=== PATIENT | male | born 1965 ===

== ENCOUNTER 2020-04-24 18:26 | Inpatient (IN) | payer BC, SELFPAY ==
[2020-04-24] MEDS ORDERED: SUMAtriptan Succinate 50 MG TAB PO PRN (23:15)
[2020-04-24] MEDS ORDERED: Linaclotide [Linzess] 72 MCG Capsule PO PRN (23:18)
[2020-04-24] MEDS: Albuterol 200 PUFF (6.7GM INHALER) INH PRN (23:53)
--- NOTE | 2020-04-25 00:06 | PDOC.BPN ---
- Brief Progress Note [id number] HP dictated
[2020-04-25 00:13] VITALS: BMI 23.6
--- NOTE | 2020-04-25 01:30 | HP ---
CHIEF COMPLAINT: Shortness of breath and fever. HISTORY OF PRESENT ILLNESS: Mr. Florentino is a 55-year-old male, who is being transferred from outside emergency room after he presented there with cough, fever, shortness of breath that has been going on for the last week or so. The patient does have a history of chronic kidney disease, esophageal varices, portal vein thrombosis, hypertension. In the emergency room, the patient was tested positive for COVID-19. Chest x-ray showed increased pulmonary markings/infiltrates. The patient was found to be hypoxic with oxygen saturation in the 80s. Placed on 3 L/minute nasal cannula. The patient was given IV dexamethasone, bronchodilators, and requested to transfer the patient on medical facility for further management. PAST MEDICAL HISTORY: As mentioned above in history of present illness. PAST SURGICAL HISTORY: 1. Endoscopy. 2. Colonoscopy. SOCIAL HISTORY: Denies drug use or alcohol abuse. FAMILY HISTORY: Reviewed and noncontributory. HOME MEDICATIONS: See home medication reconciliation form for updated medications. ALLERGIES: ALLERGIC TO HYDROCODONE, MEPERIDINE, MORPHINE, TETRACYCLINE. REVIEW OF SYSTEMS: Review of 14 systems negative except what is mentioned in history of present illness. PHYSICAL EXAMINATION: GENERAL: The patient is awake, alert, in moderate distress. VITAL SIGNS: Temperature is 97.4, blood pressure 120/72, pulse is 84, respiratory rate is 24, oxygen saturation is 95% on 3 L/minute nasal cannula. HEAD AND NECK: Normocephalic, atraumatic. Neck is supple. CHEST: Coarse bilateral breath sounds, respirations are not labored. HEART: S1 and S2, regular. ABDOMEN: Soft, nontender. Bowel sounds present. NEUROLOGIC: Awake, alert. No focal deficits. PSYCH: Unable to assess. EXTREMITIES: No clubbing, no cyanosis. GENITOURINARY: No suprapubic tenderness. No flank tenderness. LABORATORY DATA: WBC 11.7, hemoglobin 14.9, platelets 226. Sodium 138, potassium 4.0, BUN is 24, glucose 112. ABG, pH 7.48, PaCO2 is 24, PaO2 is 68 on 3 L/minute nasal cannula. ASSESSMENT AND PLAN: 1. Acute hypoxic respiratory failure. 2. Coronavirus disease-19 pneumonia. 3. Chronic kidney disease. 4. History of portal vein thrombosis. The patient was on Eliquis, but it was stopped because of gastrointestinal bleeding. 5. Esophageal varices, history of bleeding. His Eliquis has been stopped. 6. Hypertension. PLAN: 1. Admit. 2. Oxygen to keep saturation more than 92%. 3. IV dexamethasone. 4. Empiric IV antibiotic. 5. Cannot anticoagulate, the patient has a history of GI bleed/esophageal varices. 6. Remdesivir to be considered, but the patient has chronic kidney disease and elevated creatinine, reassess in a.m. May need to consult Pulmonary for evaluation and further recommendations. 7. Reconcile home medications. 8. DVT prophylaxis as appropriate. 9. Expected length of stay, 2 midnights or more. Job ID: [id number]
[2020-04-25] MEDS: Ondansetron ODT 4 MG TAB PO PRN ×3 (02:27→21:01)
[2020-04-25] MEDS: Acetaminophen 325 MG TAB PO PRN ×3 (02:27→21:00)
[2020-04-25] MEDS: Guaifenesin DM 100-10/5 ML UDCUP PO PRN ×3 (03:36→21:01)
[2020-04-25] MEDS: Levothyroxine Sodium 75 MCG TAB PO SCH (05:33)
[2020-04-25 06:12] LABS: #Lymphocytes 0.7 thou/uL (1.20-3.40); #Monocytes 0.7 thou/uL (0.11-0.59); %Eosinophils 0.2 % (0.0-10.0); %Lymphocytes 7.6 % (21.0-51.0); %Monocytes 7.2 % (0.0-10.0); Hemoglobin 13.1 g/dL (14.0-18.0); Mean Corpuscular HGB CONC 32.4 g/dL (32.0-36.0); Mean Corpuscular Hemoglobin 29.1 pg (27.0-31.0); Mean Platelet Volume 7.7 fL (7.4-10.4); Platelet Count 172 thou/uL (130-400); Red Blood Cell (RBC) Count 4.49 mill/uL (4.70-6.10); White Blood Cell (WBC) Count 9.4 thou/uL (4.8-10.8)
[2020-04-25 06:34] LABS: ALT (SGPT) 53 U/L (8-55); AST (SGOT) 48 U/L (5-34); Albumin 3.3 g/dL (3.5-5.0); Alkaline Phosphatase 59 U/L (40-110); Anion Gap 15 mmol/L (10-20); BUN (Urea Nitrogen) 22 mg/dL (8.4-25.7); Bilirubin, Total 0.9 mg/dL (0.2-1.2); Calc. Creatinine Clearance 83 mL/min (70-130); Calcium 7.9 mg/dL (7.8-10.44); Carbon Dioxide 21 mmol/L (22-29); Chloride 107 mmol/L (98-107); Globulin 2.9 g/dL (2.4-3.5); Glucose 106 mg/dL (70-105); Potassium 4.4 mmol/L (3.5-5.1); Protein, Total 6.2 g/dL (6.0-8.3); Sodium 139 mmol/L (136-145)
[2020-04-25] MEDS ORDERED: Famotidine 20 MG TAB PO SCH (09:00)
[2020-04-25] MEDS ORDERED: Dexamethasone Sod Phosphate 6 MG in Sodium Chloride 0.9% 50 ML IVPB SCH (09:00)
[2020-04-25] MEDS ORDERED: Dicyclomine 10 MG CAP PO SCH (09:00)
[2020-04-25] MEDS ORDERED: Heparin 5,000 UNITS/ML VIAL SC SCH (09:00)
[2020-04-25] MEDS: Albuterol 200 PUFF (6.7GM INHALER) INH PRN (10:11)
[2020-04-25] MEDS: Benzonatate 100 MG CAP PO PRN (11:12)
[2020-04-25] MEDS: ALPRAZolam 1 MG TAB PO PRN ×2 (13:25→21:00)
[2020-04-25 14:42] LABS: Troponin I Less than 0.010 ng/mL (< 0.028)
--- NOTE | 2020-04-25 18:10 | PDOC.HOSPP ---
- Subjective Encounter Date: 04/25/20 Encounter Time: 11:45 Subjective: Patient up in bed gets short of breath when coughing - Objective Vital Signs & Weight: Vital Signs (12 hours) Temp Pulse Resp BP Pulse Ox 04/25/20 16:48 97.1 F L 86 18 133/67 98 04/25/20 12:00 95 04/25/20 11:34 99.2 F 95 20 139/69 95 04/25/20 08:17 97.5 F L 78 20 138/78 100 04/25/20 08:00 95 Weight Weight 164 lb 11.2 oz I&O: 04/24/20 04/25/20 04/26/20 06:59 06:59 06:59 Intake Total 490 Balance 490 Result Diagrams: 04/25/20 05:42 04/25/20 05:42 Hospitalist ROS - Review of Systems Respiratory: reports: cough, shortness of breath Cardiovascular: denies: chest pain, palpitations, orthopnea, paroxysmal noc. dyspnea, edema, light headedness, other Gastrointestinal: denies: nausea, vomiting, abdominal pain, diarrhea, constipation, melena, hematochezia, other Genitourinary: denies: dysuria, frequency, incontinence, hematuria, retention, other - Medication Medications: Active Medications Generic Name Dose Route Start Last Admin Trade Name Freq PRN Reason Stop Dose Admin Acetaminophen 650 mg 04/24/20 22:45 04/25/20 11:12 Acetaminophen 325 Mg Tab PO 650 mg Q4H PRN Administration Headache/Fever/Mild Pain (1-3) Albuterol Sulfate 2 puff 04/24/20 22:58 04/25/20 10:11 Albuterol 200 Puff (6.7gm Inhaler) INH 2 puff Q4H PRN Administration SOB or Anxiety Alprazolam 1 mg 04/24/20 23:10 04/25/20 13:25 Alprazolam 1 Mg Tab PO 1 mg TID PRN Administration Anxiety Benzonatate 100 mg 04/25/20 10:45 04/25/20 11:12 Benzonatate 100 Mg Cap PO 100 mg TIDPRN PRN Administration Cough Guaifenesin/Dextromethorphan 15 ml 04/25/20 02:46 04/25/20 10:11 Guaifenesin Dm 100-10/5 Ml Udcup PO 15 ml Q4H PRN Administration Cough Dexamethasone Sodium Phosphate 51.5 mls @ 101.756 mls/hr 04/25/20 09:00 04/25/20 09:51 6 mg/ Sodium Chloride IVPB 51.5 mls DAILY JOSE M Administration Levothyroxine Sodium 75 mcg 04/25/20 06:00 04/25/20 05:33 Levothyroxine Sodium 75 Mcg Tab PO 75 mcg 0600 JOSE M Administration Ondansetron HCl 4 mg 04/24/20 23:10 04/25/20 10:11 Ondansetron Odt 4 Mg Tab PO 4 mg Q4HR PRN Administration Nausea/Vomiting Pantoprazole Sodium 40 mg 04/25/20 09:00 04/25/20 09:50 Pantoprazole 40 Mg Tab PO 40 mg BID JOSE M Administration - Exam Neck: negative: supple, symmetric, no JVD, no thyromegaly, no lymphadenopathy, no carotid bruit, JVD Heart: negative: RRR, no murmur, no gallops, no rubs, normal peripheral pulses, irregular, diminshed peripheral pulses, murmur present, II/IV, III/IV Respiratory: rales Gastrointestinal: negative: soft, non-tender, non-distended, normal bowel sounds, no palpable masses, no hepatomegaly, no splenomegaly, no bruit, no guarding, no rigidity, tender to palpation, distended, diminished bowl sounds, voluntary guarding Hosp A/P (1) Acute respiratory failure with hypoxia Code(s): J96.01 - ACUTE RESPIRATORY FAILURE WITH HYPOXIA Status: Acute (2) COVID-19 Code(s): U07.1 - COVID-19 Status: Acute (3) Portal vein thrombosis Code(s): I81 - PORTAL VEIN THROMBOSIS Status: Acute (4) Varices of esophagus determined by endoscopy Code(s): I85.00 - ESOPHAGEAL VARICES WITHOUT BLEEDING Status: Acute - Plan Patient was diagnosed with Covid on April 14. He was recently put on steroids a couple days prior to coming into the hospital. We will start patient on some steroid inhalers and IV Decadron. There was a question about possible PE however unable to do a CTA patient states that he has chronic kidney disease and his creatinine last time was 2. I do not have a complete history of this patient. He also states that his cirrhosis is most likely secondary to medication that he was on before. I will get records from [facility] in [place]. Patient also had a recent EGD with banding and was taken off of the Eliquis. He states that he was supposed to go back for endoscopy to check out the other varices. I did tell the patient that he is at high risk for bleeding and will just do DVT prophylaxis for now. His portal vein thrombosis was diagnosed about 1 to 2 years ago.
[2020-04-25 18:22] LABS: Troponin I Less than 0.010 ng/mL (< 0.028)
[2020-04-25] MEDS: Mometasone 100 MCG/Formoterol 5 MCG 120 PUFF INHALER INH SCH (20:59)
[2020-04-25] MEDS ORDERED: Vortioxetine Hydrobromide [Trintellix] 10 MG Tablet PO SCH (21:00)
[2020-04-25] MEDS: Enoxaparin Sodium 40 MG/0.4 ML SYRINGE SC SCH (21:01)
[2020-04-25 23:50] LABS: Troponin I Less than 0.010 ng/mL (< 0.028)
[2020-04-26] MEDS: Mometasone 100 MCG/Formoterol 5 MCG 120 PUFF INHALER INH SCH ×2 (05:48→17:33)
[2020-04-26] MEDS: Benzonatate 100 MG CAP PO PRN ×3 (05:49→20:13)
[2020-04-26] MEDS: Guaifenesin DM 100-10/5 ML UDCUP PO PRN (05:49)
[2020-04-26] MEDS: Ondansetron ODT 4 MG TAB PO PRN ×2 (05:49→09:37)
[2020-04-26] MEDS: Levothyroxine Sodium 75 MCG TAB PO SCH (05:49)
[2020-04-26] MEDS: Acetaminophen 325 MG TAB PO PRN ×2 (05:49→17:31)
[2020-04-26 06:08] LABS: #Lymphocytes 0.5 thou/uL (1.20-3.40); #Monocytes 0.4 thou/uL (0.11-0.59); #Neutrophils 6.3 thou/uL (1.40-6.50); %Eosinophils 0.3 % (0.0-10.0); %Lymphocytes 7.5 % (21.0-51.0); %Monocytes 5.7 % (0.0-10.0); %Neutrophils 86.6 % (42.0-75.0); Hemoglobin 13.9 g/dL (14.0-18.0); Mean Corpuscular HGB CONC 32.3 g/dL (32.0-36.0); Mean Corpuscular Hemoglobin 29.2 pg (27.0-31.0); Mean Corpuscular Volume 90.4 fL (78.0-98.0); Mean Platelet Volume 7.5 fL (7.4-10.4); Platelet Count 188 thou/uL (130-400); Red Blood Cell (RBC) Count 4.75 mill/uL (4.70-6.10); White Blood Cell (WBC) Count 7.3 thou/uL (4.8-10.8)
[2020-04-26 06:29] LABS: ALT (SGPT) 75 U/L (8-55); AST (SGOT) 49 U/L (5-34); Albumin 3.3 g/dL (3.5-5.0); Alkaline Phosphatase 70 U/L (40-110); Anion Gap 11 mmol/L (10-20); BUN (Urea Nitrogen) 23 mg/dL (8.4-25.7); Bilirubin, Total 0.9 mg/dL (0.2-1.2); CRP (Inflammatory) 4.93 mg/dL (= or < 0.5); Calc. Creatinine Clearance 74 mL/min (70-130); Calcium 8.3 mg/dL (7.8-10.44); Carbon Dioxide 29 mmol/L (22-29); Chloride 103 mmol/L (98-107); Globulin 3.2 g/dL (2.4-3.5); Glucose 97 mg/dL (70-105); Potassium 4.9 mmol/L (3.5-5.1); Protein, Total 6.5 g/dL (6.0-8.3); Sodium 138 mmol/L (136-145)
[2020-04-26] MEDS: Dexamethasone 10 MG/ML VIAL SLOW IVP SCH (09:05)
[2020-04-26] MEDS: Enoxaparin Sodium 40 MG/0.4 ML SYRINGE SC SCH ×2 (09:06→20:12)
[2020-04-26] MEDS: ALPRAZolam 1 MG TAB PO PRN ×2 (12:48→20:12)
--- NOTE | 2020-04-26 13:22 | PDOC.HOSPP ---
- Subjective Encounter Date: 04/26/20 Encounter Time: 10:30 Subjective: Patient up in bed complains of some shortness of breath and cough. - Objective Vital Signs & Weight: Vital Signs (12 hours) Temp Pulse Resp BP Pulse Ox 04/26/20 11:35 99.0 F 86 16 143/74 H 92 L 04/26/20 08:59 98.6 F 91 18 113/70 95 04/26/20 08:00 95 04/26/20 03:50 99.2 F 83 24 H 121/77 96 Weight Weight 164 lb 11.2 oz I&O: 04/25/20 04/26/20 04/27/20 06:59 06:59 06:59 Intake Total 490 490 Output Total 250 Balance 490 240 Result Diagrams: 04/26/20 05:55 04/26/20 05:55 Hospitalist ROS - Review of Systems Respiratory: reports: cough, shortness of breath Cardiovascular: denies: chest pain, palpitations, orthopnea, paroxysmal noc. dyspnea, edema, light headedness, other Gastrointestinal: denies: nausea, vomiting, abdominal pain, diarrhea, constipation, melena, hematochezia, other Genitourinary: denies: dysuria, frequency, incontinence, hematuria, retention, other - Medication Medications: Active Medications Generic Name Dose Route Start Last Admin Trade Name Freq PRN Reason Stop Dose Admin Acetaminophen 650 mg 04/24/20 22:45 04/26/20 05:49 Acetaminophen 325 Mg Tab PO 650 mg Q4H PRN Administration Headache/Fever/Mild Pain (1-3) Albuterol Sulfate 2 puff 04/24/20 22:58 04/25/20 10:11 Albuterol 200 Puff (6.7gm Inhaler) INH 2 puff Q4H PRN Administration SOB or Anxiety Alprazolam 1 mg 04/24/20 23:10 04/26/20 12:48 Alprazolam 1 Mg Tab PO 1 mg TID PRN Administration Anxiety Benzonatate 100 mg 04/25/20 10:45 04/26/20 12:48 Benzonatate 100 Mg Cap PO 100 mg TIDPRN PRN Administration Cough Dexamethasone 6 mg 04/26/20 09:00 04/26/20 09:05 Dexamethasone 10 Mg/Ml Vial SLOW IVP 6 mg DAILY JOSE M Administration Enoxaparin Sodium 40 mg 04/25/20 21:00 04/26/20 09:06 Enoxaparin Sodium 40 Mg/0.4 Ml Syringe SC 40 mg BID JOSE M Administration Guaifenesin/Dextromethorphan 15 ml 04/25/20 02:46 04/26/20 05:49 Guaifenesin Dm 100-10/5 Ml Udcup PO 15 ml Q4H PRN Administration Cough Levothyroxine Sodium 75 mcg 04/25/20 06:00 04/26/20 05:49 Levothyroxine Sodium 75 Mcg Tab PO 75 mcg 0600 JOSE M Administration Mometasone Furoate/Formoterol Fumar 1 puff 04/25/20 18:30 04/26/20 05:48 Mometasone 100 Mcg/Formoterol 5 Mcg 120 Puff Inhaler INH 1 puff BID-RT JOSE M Administration Ondansetron HCl 4 mg 04/24/20 23:10 04/26/20 09:37 Ondansetron Odt 4 Mg Tab PO 4 mg Q4HR PRN Administration Nausea/Vomiting Pantoprazole Sodium 40 mg 04/25/20 09:00 04/26/20 09:07 Pantoprazole 40 Mg Tab PO 40 mg BID JOSE M Administration - Exam Neck: negative: supple, symmetric, no JVD, no thyromegaly, no lymphadenopathy, no carotid bruit, JVD Heart: negative: RRR, no murmur, no gallops, no rubs, normal peripheral pulses, irregular, diminshed peripheral pulses, murmur present, II/IV, III/IV Respiratory: rales Gastrointestinal: negative: soft, non-tender, non-distended, normal bowel sounds, no palpable masses, no hepatomegaly, no splenomegaly, no bruit, no guarding, no rigidity, tender to palpation, distended, diminished bowl sounds, voluntary guarding Hosp A/P (1) Acute respiratory failure with hypoxia Code(s): J96.01 - ACUTE RESPIRATORY FAILURE WITH HYPOXIA Status: Acute (2) COVID-19 Code(s): U07.1 - COVID-19 Status: Acute (3) Portal vein thrombosis Code(s): I81 - PORTAL VEIN THROMBOSIS Status: Acute (4) Varices of esophagus determined by endoscopy Code(s): I85.00 - ESOPHAGEAL VARICES WITHOUT BLEEDING Status: Acute - Plan Patient was diagnosed with Covid on April 14. He was recently put on steroids a couple days prior to coming into the hospital. We will start patient on some steroid inhalers and IV Decadron. There was a question about possible PE however unable to do a CTA patient states that he has chronic kidney disease and his creatinine last time was 2. I do not have a complete history of this patient. He also states that his cirrhosis is most likely secondary to medication that he was on before. I will get records from [facility] in [place]. Patient also had a recent EGD with banding and was taken off of the Eliquis. He states that he was supposed to go back for endoscopy to check out the other varices. I did tell the patient that he is at high risk for bleeding and will just do DVT prophylaxis for now. His portal vein thrombosis was diagnosed about 1 to 2 years ago. 04/26 we will continue current treatment. Patient continues to cough. Patient complains of burning when he coughs we will start him on some Carafate. He is already on Protonix. He is on DVT prophylaxis. Patient continues to be on oxygen. Will check inflammatory markers. Not a candidate for any treatment for Covid given his symptoms starting on April 14.
[2020-04-26] MEDS: guaiFENesin/Codeine Phosphate 200 mg/20 mg 10 ml UD Cup PO PRN ×2 (15:15→20:14)
[2020-04-26] MEDS: Sucralfate 1 GM TAB PO SCH ×2 (17:31→20:12)
[2020-04-27] MEDS: Levothyroxine Sodium 75 MCG TAB PO SCH (05:08)
[2020-04-27] MEDS: Acetaminophen 325 MG TAB PO PRN ×2 (05:08→15:40)
[2020-04-27] MEDS: Guaifenesin DM 100-10/5 ML UDCUP PO PRN (05:14)
[2020-04-27] MEDS: Ondansetron ODT 4 MG TAB PO PRN ×2 (05:18→22:32)
[2020-04-27 05:31] LABS: #Eosinphils 0.1 thou/uL (0.0-0.7); #Lymphocytes 0.7 thou/uL (1.20-3.40); #Monocytes 0.4 thou/uL (0.11-0.59); #Neutrophils 4.9 thou/uL (1.40-6.50); %Eosinophils 1.5 % (0.0-10.0); %Lymphocytes 11.6 % (21.0-51.0); %Monocytes 5.7 % (0.0-10.0); %Neutrophils 81.1 % (42.0-75.0); Hemoglobin 13.9 g/dL (14.0-18.0); Mean Corpuscular HGB CONC 33.1 g/dL (32.0-36.0); Mean Corpuscular Hemoglobin 30.3 pg (27.0-31.0); Mean Corpuscular Volume 91.5 fL (78.0-98.0); Mean Platelet Volume 7.9 fL (7.4-10.4); Platelet Count 161 thou/uL (130-400); RBC Distribution Width 13.9 % (11.5-14.5); Red Blood Cell (RBC) Count 4.59 mill/uL (4.70-6.10); White Blood Cell (WBC) Count 6.1 thou/uL (4.8-10.8)
[2020-04-27 05:58] LABS: ALT (SGPT) 62 U/L (8-55); AST (SGOT) 34 U/L (5-34); Albumin 3.2 g/dL (3.5-5.0); Alkaline Phosphatase 68 U/L (40-110); Anion Gap 16 mmol/L (10-20); BUN (Urea Nitrogen) 23 mg/dL (8.4-25.7); Bilirubin, Total 0.6 mg/dL (0.2-1.2); CRP (Inflammatory) 4.08 mg/dL (= or < 0.5); Calc. Creatinine Clearance 86 mL/min (70-130); Carbon Dioxide 22 mmol/L (22-29); Chloride 105 mmol/L (98-107); Glucose 97 mg/dL (70-105); Potassium 4.6 mmol/L (3.5-5.1); Protein, Total 6.2 g/dL (6.0-8.3); Sodium 138 mmol/L (136-145)
[2020-04-27] MEDS: Mometasone 100 MCG/Formoterol 5 MCG 120 PUFF INHALER INH SCH ×2 (06:17→17:53)
[2020-04-27] MEDS: Sucralfate 1 GM TAB PO SCH ×4 (09:19→20:19)
[2020-04-27] MEDS: Dexamethasone 10 MG/ML VIAL SLOW IVP SCH (09:19)
[2020-04-27] MEDS: Enoxaparin Sodium 40 MG/0.4 ML SYRINGE SC SCH ×2 (09:20→20:19)
--- NOTE | 2020-04-27 15:24 | PDOC.HOSPP ---
- Subjective Encounter Date: 04/27/20 Encounter Time: 11:20 Subjective: pt up in bed planes of cough. Patient states that he feels weak. - Objective Vital Signs & Weight: Vital Signs (12 hours) Temp Pulse Resp BP Pulse Ox 04/27/20 08:00 100 04/27/20 07:53 97.1 F L 89 14 121/70 100 Weight Weight 164 lb 11.2 oz I&O: 04/26/20 04/27/20 04/28/20 06:59 06:59 06:59 Intake Total 490 350 Output Total 250 450 Balance 240 -100 Result Diagrams: 04/27/20 05:09 04/27/20 05:09 Hospitalist ROS - Review of Systems Respiratory: reports: cough. denies: dry, shortness of breath, hemoptysis, SOB with excertion, pleuritic pain, sputum, wheezing, other Cardiovascular: denies: chest pain, palpitations, orthopnea, paroxysmal noc. dyspnea, edema, light headedness, other Gastrointestinal: denies: nausea, vomiting, abdominal pain, diarrhea, constipation, melena, hematochezia, other - Medication Medications: Active Medications Generic Name Dose Route Start Last Admin Trade Name Freq PRN Reason Stop Dose Admin Acetaminophen 650 mg 04/24/20 22:45 04/27/20 05:08 Acetaminophen 325 Mg Tab PO 650 mg Q4H PRN Administration Headache/Fever/Mild Pain (1-3) Albuterol Sulfate 2 puff 04/24/20 22:58 04/25/20 10:11 Albuterol 200 Puff (6.7gm Inhaler) INH 2 puff Q4H PRN Administration SOB or Anxiety Alprazolam 1 mg 04/24/20 23:10 04/26/20 20:12 Alprazolam 1 Mg Tab PO 1 mg TID PRN Administration Anxiety Benzonatate 100 mg 04/25/20 10:45 04/26/20 20:13 Benzonatate 100 Mg Cap PO 100 mg TIDPRN PRN Administration Cough Dexamethasone 6 mg 04/26/20 09:00 04/27/20 09:19 Dexamethasone 10 Mg/Ml Vial SLOW IVP 6 mg DAILY JOSE M Administration Enoxaparin Sodium 40 mg 04/25/20 21:00 04/27/20 09:20 Enoxaparin Sodium 40 Mg/0.4 Ml Syringe SC 40 mg BID JOSE M Administration Guaifenesin/Codeine Phosphate 10 ml 04/25/20 10:45 04/26/20 20:14 Guaifenesin/Codeine Phosphate 200 Mg/20 Mg 10 Ml Ud Cup PO 10 ml BIDPRN PRN Administration Cough Guaifenesin/Dextromethorphan 15 ml 04/25/20 02:46 04/27/20 05:14 Guaifenesin Dm 100-10/5 Ml Udcup PO 15 ml Q4H PRN Administration Cough Levothyroxine Sodium 75 mcg 04/25/20 06:00 04/27/20 05:08 Levothyroxine Sodium 75 Mcg Tab PO 75 mcg 0600 JOSE M Administration Mometasone Furoate/Formoterol Fumar 1 puff 04/25/20 18:30 04/27/20 06:17 Mometasone 100 Mcg/Formoterol 5 Mcg 120 Puff Inhaler INH 1 puff BID-RT JOSE M Administration Ondansetron HCl 4 mg 04/24/20 23:10 04/27/20 05:18 Ondansetron Odt 4 Mg Tab PO 4 mg Q4HR PRN Administration Nausea/Vomiting Pantoprazole Sodium 40 mg 04/25/20 09:00 04/27/20 09:20 Pantoprazole 40 Mg Tab PO 40 mg BID JOSE M Administration Sucralfate 1 gm 04/26/20 17:00 04/27/20 11:29 Sucralfate 1 Gm Tab PO 1 gm ACHS JOSE M Administration - Exam Neck: negative: supple, symmetric, no JVD, no thyromegaly, no lymphadenopathy, no carotid bruit, JVD Heart: negative: RRR, no murmur, no gallops, no rubs, normal peripheral pulses, irregular, diminshed peripheral pulses, murmur present, II/IV, III/IV Respiratory: negative: CTAB, no wheezes, no rales, no ronchi, normal chest expansion, no tachypnea, normal percussion, rales, rhonchi, tachypneic, wheezes Gastrointestinal: negative: soft, non-tender, non-distended, normal bowel sounds, no palpable masses, no hepatomegaly, no splenomegaly, no bruit, no guarding, no rigidity, tender to palpation, distended, diminished bowl sounds, voluntary guarding Hosp A/P (1) Acute respiratory failure with hypoxia Code(s): J96.01 - ACUTE RESPIRATORY FAILURE WITH HYPOXIA Status: Acute (2) COVID-19 Code(s): U07.1 - COVID-19 Status: Acute (3) Portal vein thrombosis Code(s): I81 - PORTAL VEIN THROMBOSIS Status: Acute (4) Varices of esophagus determined by endoscopy Code(s): I85.00 - ESOPHAGEAL VARICES WITHOUT BLEEDING Status: Acute - Plan Patient was diagnosed with Covid on April 14. He was recently put on steroids a couple days prior to coming into the hospital. We will start patient on some steroid inhalers and IV Decadron. There was a question about possible PE however unable to do a CTA patient states that he has chronic kidney disease and his creatinine last time was 2. I do not have a complete history of this patient. He also states that his cirrhosis is most likely secondary to medication that he was on before. I will get records from [facility] in [place]. Patient also had a recent EGD with banding and was taken off of the Eliquis. He states that he was supposed to go back for endoscopy to check out the other varices. I did tell the patient that he is at high risk for bleeding and will just do DVT prophylaxis for now. His portal vein thrombosis was diagno sed about 1 to 2 years ago. 04/26 we will continue current treatment. Patient continues to cough. Patient complains of burning when he coughs we will start him on some Carafate. He is already on Protonix. He is on DVT prophylaxis. Patient continues to be on oxygen. Will check inflammatory markers. Not a candidate for any treatment for Covid given his symptoms starting on April 14. 04/27 patient up in bed still coughing. We will continue oxygen. We will continue to trend inflammatory markers. We will get physical therapy to see the patient. Patient stated that he lost his balance yesterday but did not hit his head. This was unwitnessed fall.
[2020-04-27] MEDS: ALPRAZolam 1 MG TAB PO PRN ×2 (15:25→20:19)
[2020-04-27] MEDS: Albuterol 200 PUFF (6.7GM INHALER) INH PRN (15:26)
[2020-04-27] MEDS: Benzonatate 100 MG CAP PO PRN (20:19)
[2020-04-28] MEDS: Levothyroxine Sodium 75 MCG TAB PO SCH (05:34)
[2020-04-28] MEDS: Mometasone 100 MCG/Formoterol 5 MCG 120 PUFF INHALER INH SCH ×2 (05:34→17:55)
[2020-04-28 06:02] LABS: #Eosinphils 0.1 thou/uL (0.0-0.7); #Lymphocytes 0.6 thou/uL (1.20-3.40); #Monocytes 0.5 thou/uL (0.11-0.59); #Neutrophils 6.4 thou/uL (1.40-6.50); %Basophils 0.2 % (0.0-1.0); %Eosinophils 1.4 % (0.0-10.0); %Lymphocytes 8.3 % (21.0-51.0); %Monocytes 5.9 % (0.0-10.0); %Neutrophils 84.2 % (42.0-75.0); Hemoglobin 13.5 g/dL (14.0-18.0); Mean Corpuscular HGB CONC 31.5 g/dL (32.0-36.0); Mean Corpuscular Hemoglobin 28.6 pg (27.0-31.0); Mean Corpuscular Volume 90.8 fL (78.0-98.0); Mean Platelet Volume 8.8 fL (7.4-10.4); Platelet Count 216 thou/uL (130-400); RBC Distribution Width 14.1 % (11.5-14.5); White Blood Cell (WBC) Count 7.6 thou/uL (4.8-10.8)
[2020-04-28 06:17] LABS: Anion Gap 15 mmol/L (10-20); BUN (Urea Nitrogen) 24 mg/dL (8.4-25.7); Calc. Creatinine Clearance 81 mL/min (70-130); Calcium 8.2 mg/dL (7.8-10.44); Carbon Dioxide 22 mmol/L (22-29); Chloride 105 mmol/L (98-107); Glucose 99 mg/dL (70-105); Potassium 4.5 mmol/L (3.5-5.1); Sodium 137 mmol/L (136-145)
[2020-04-28] MEDS: Sucralfate 1 GM TAB PO SCH ×4 (08:36→22:25)
[2020-04-28] MEDS: Dexamethasone 10 MG/ML VIAL SLOW IVP SCH (08:40)
[2020-04-28] MEDS: guaiFENesin/Codeine Phosphate 200 mg/20 mg 10 ml UD Cup PO PRN ×3 (08:42→22:24)
[2020-04-28] MEDS: Enoxaparin Sodium 40 MG/0.4 ML SYRINGE SC SCH ×2 (08:42→22:24)
[2020-04-28] MEDS: Benzonatate 100 MG CAP PO PRN ×3 (08:42→22:24)
[2020-04-28] MEDS: ALPRAZolam 1 MG TAB PO PRN ×3 (08:42→22:27)
--- NOTE | 2020-04-28 13:49 | PDOC.HOSPP ---
- Subjective Encounter Date: 04/28/20 Encounter Time: 10:30 Subjective: pt up in bed complains of coughing - Objective Vital Signs & Weight: Vital Signs (12 hours) Temp Pulse Resp BP Pulse Ox 04/28/20 13:20 97.3 F L 87 20 115/71 97 04/28/20 08:00 91 L 04/28/20 05:30 98.7 F 82 20 129/76 92 L Weight Weight 164 lb 11.2 oz I&O: 04/27/20 04/28/20 04/29/20 06:59 06:59 06:59 Intake Total 350 120 Output Total 450 Balance -100 120 Result Diagrams: 04/28/20 05:43 04/28/20 05:43 Hospitalist ROS - Review of Systems Cardiovascular: denies: chest pain, palpitations, orthopnea, paroxysmal noc. dyspnea, edema, light headedness, other Gastrointestinal: denies: nausea, vomiting, abdominal pain, diarrhea, constipation, melena, hematochezia, other Genitourinary: denies: dysuria, frequency, incontinence, hematuria, retention, other - Medication Medications: Active Medications Generic Name Dose Route Start Last Admin Trade Name Freq PRN Reason Stop Dose Admin Acetaminophen 650 mg 04/24/20 22:45 04/27/20 15:40 Acetaminophen 325 Mg Tab PO 650 mg Q4H PRN Administration Headache/Fever/Mild Pain (1-3) Albuterol Sulfate 2 puff 04/24/20 22:58 04/27/20 15:26 Albuterol 200 Puff (6.7gm Inhaler) INH 2 puff Q4H PRN Administration SOB or Anxiety Alprazolam 1 mg 04/24/20 23:10 04/28/20 08:42 Alprazolam 1 Mg Tab PO 1 mg TID PRN Administration Anxiety Benzonatate 100 mg 04/25/20 10:45 04/28/20 08:42 Benzonatate 100 Mg Cap PO 100 mg TIDPRN PRN Administration Cough Dexamethasone 6 mg 04/26/20 09:00 04/28/20 08:40 Dexamethasone 10 Mg/Ml Vial SLOW IVP 6 mg DAILY JOSE M Administration Enoxaparin Sodium 40 mg 04/25/20 21:00 04/28/20 08:42 Enoxaparin Sodium 40 Mg/0.4 Ml Syringe SC 40 mg BID JOSE M Administration Guaifenesin/Codeine Phosphate 10 ml 04/25/20 10:45 04/28/20 08:42 Guaifenesin/Codeine Phosphate 200 Mg/20 Mg 10 Ml Ud Cup PO 10 ml BIDPRN PRN Administration Cough Guaifenesin/Dextromethorphan 15 ml 04/25/20 02:46 04/27/20 05:14 Guaifenesin Dm 100-10/5 Ml Udcup PO 15 ml Q4H PRN Administration Cough Levothyroxine Sodium 75 mcg 04/25/20 06:00 04/28/20 05:34 Levothyroxine Sodium 75 Mcg Tab PO 75 mcg 0600 JOSE M Administration Mometasone Furoate/Formoterol Fumar 1 puff 04/25/20 18:30 04/28/20 05:34 Mometasone 100 Mcg/Formoterol 5 Mcg 120 Puff Inhaler INH 1 puff BID-RT JOSE M Administration Ondansetron HCl 4 mg 04/24/20 23:10 04/27/20 22:32 Ondansetron Odt 4 Mg Tab PO 4 mg Q4HR PRN Administration Nausea/Vomiting Pantoprazole Sodium 40 mg 04/25/20 09:00 04/28/20 08:40 Pantoprazole 40 Mg Tab PO 40 mg BID JOSE M Administration Sucralfate 1 gm 04/26/20 17:00 04/28/20 11:58 Sucralfate 1 Gm Tab PO 1 gm ACHS JOSE M Administration - Exam Heart: negative: RRR, no murmur, no gallops, no rubs, normal peripheral pulses, irregular, diminshed peripheral pulses, murmur present, II/IV, III/IV Respiratory: rales Gastrointestinal: negative: soft, non-tender, non-distended, normal bowel sounds, no palpable masses, no hepatomegaly, no splenomegaly, no bruit, no guarding, no rigidity, tender to palpation, distended, diminished bowl sounds, voluntary guarding Extremities: negative: no cyanosis, no clubbing, no edema, 1+ LE edema, 2+ LE edema, clubbing Hosp A/P (1) Acute respiratory failure with hypoxia Code(s): J96.01 - ACUTE RESPIRATORY FAILURE WITH HYPOXIA Status: Acute (2) COVID-19 Code(s): U07.1 - COVID-19 Status: Acute (3) Portal vein thrombosis Code(s): I81 - PORTAL VEIN THROMBOSIS Status: Acute (4) Varices of esophagus determined by endoscopy Code(s): I85.00 - ESOPHAGEAL VARICES WITHOUT BLEEDING Status: Acute - Plan Patient was diagnosed with Covid on April 14. He was recently put on steroids a couple days prior to coming into the hospital. We will start patient on some steroid inhalers and IV Decadron. There was a question about possible PE ho wever unable to do a CTA patient states that he has chronic kidney disease and his creatinine last time was 2. I do not have a complete history of this patient. He also states that his cirrhosis is most likely secondary to medication that he was on before. I will get records from [facility] in [place]. Patient also had a recent EGD with banding and was taken off of the Eliquis. He states that he was supposed to go back for endoscopy to check out the other varices. I did tell the patient that he is at high risk for bleeding and will just do DVT prophylaxis for now. His portal vein thrombosis was diagnosed about 1 to 2 years ago. 04/26 we will continue current treatment. Patient continues to cough. Patient complains of burning when he coughs we will start him on some Carafate. He is already on Protonix. He is on DVT prophylaxis. Patient continues to be on oxygen. Will check inflammatory markers. Not a candidate for any treatment for Covid given his symptoms starting on April 14. 04/27 patient up in bed still coughing. We will continue oxygen. We will continue to trend inflammatory markers. We will get physical therapy to see the patient. Patient stated that he lost his balance yesterday but did not hit his head. This was unwitnessed fall. 04/28 patient up in bed still coughing desats when he coughs. Patient appears very anxious. We will check CRP in a.m. Records from [place] reviewed patient has had a chronic portal vein thrombosis and has collaterals. Per records his anticoagulation was on held till his varices improved. Patient will require s [facility]. Eating however starts coughing. patient on antitussives. Patient DVT prophylaxis.
[2020-04-28] MEDS: Acetaminophen 325 MG TAB PO PRN (16:21)
[2020-04-29] MEDS: Levothyroxine Sodium 75 MCG TAB PO SCH (06:36)
[2020-04-29] MEDS: Enoxaparin Sodium 40 MG/0.4 ML SYRINGE SC SCH (08:18)
[2020-04-29] MEDS: ALPRAZolam 1 MG TAB PO PRN ×2 (08:18→17:09)
[2020-04-29] MEDS: guaiFENesin/Codeine Phosphate 200 mg/20 mg 10 ml UD Cup PO PRN ×2 (08:18→17:09)
[2020-04-29] MEDS: Sucralfate 1 GM TAB PO SCH ×3 (08:18→17:09)
[2020-04-29] MEDS: Benzonatate 100 MG CAP PO PRN ×2 (08:18→17:09)
[2020-04-29] MEDS: Mometasone 100 MCG/Formoterol 5 MCG 120 PUFF INHALER INH SCH (08:19)
[2020-04-29] MEDS ORDERED: Dexamethasone 4 mg/ml Vial SLOW IVP SCH (09:00)
[2020-04-29] MEDS: Ondansetron ODT 4 MG TAB PO PRN (10:41)
[2020-04-29 12:46] VITALS: BP 116/74; TEMP 97.5
--- NOTE | 2020-04-29 15:54 | PDOC.DS.DS ---
Provider - Provider Date of Admission: 04/24/20 22:24 Date of Discharge: 04/29/20 Admitting Provider: Suhail Ruiz DO Primary Care Physician: Unknown Course - Hospital Course Hospital Course: Patient is a very pleasant 55-year-old male who initially presented to the [facility] with shortness of breath and fever. According to the patient he had been diagnosed with Covid more than 12 days ago. Patient has a history of esophageal varices and underwent recent banding and at this time his anticoagulation was held. Patient was supposed to follow-up with them again in 2 to 4 weeks for an endoscopy. Patient only gets hypoxic when he starts coughing. We will continue to trend inflammatory markers. Resuscitation Status: 04/24/20 22:45 Resuscitation Status Routine Resuscitation Status: FULL: Full Resuscitation - Labs Lab Results: 04/28/20 05:43 04/28/20 05:43 Abnormal Lab Results - Last 48 hrs 04/28/20 05:43: Hgb 13.5 L, MCHC 31.5 L, Neutrophils % 84.2 H, Lymphocytes % 8.3 L, Lymphocytes # 0.6 L 04/29/20 06:07: C-Reactive Protein 7.03 H - Physical Exam Vitals: Vital Signs (12 hours) Temp Pulse Resp BP BP Pulse Ox Pulse Ox 04/29/20 12:00 97.5 F L 88 32 H 116/74 98 04/29/20 10:16 92 L 04/29/20 08:00 96 04/29/20 05:25 95.4 F L 60 20 108/68 96 Pulse Ox Pulse Ox 04/29/20 12:00 04/29/20 10:16 97 96 04/29/20 08:00 04/29/20 05:25 Weight Weight 164 lb 11.2 oz Physical Exam: The patient was seen and examined on the day of discharge. Problem - Problem (1) Acute respiratory failure with hypoxia Code(s): J96.01 - ACUTE RESPIRATORY FAILURE WITH HYPOXIA Status: Acute (2) COVID-19 Code(s): U07.1 - COVID-19 Status: Acute (3) Portal vein thrombosis Code(s): I81 - PORTAL VEIN THROMBOSIS Status: Acute (4) Varices of esophagus determined by endoscopy Code(s): I85.00 - ESOPHAGEAL VARICES WITHOUT BLEEDING Status: Acute Plan - Discharge Medications Prescriptions: Dexamethasone [Decadron] 6 mg PO DAILY #6 tablet Home Medications: Medication Instructions Recorded Confirmed Type ALPRAZolam [Xanax] 1 mg PO TID PRN 04/24/20 04/24/20 History Dicyclomine [Bentyl] 10 mg PO DAILY 04/24/20 04/24/20 History Levothyroxine Sodium 75 mcg PO 0600 04/24/20 04/24/20 History [Levothyroxine] Linaclotide [Linzess] 72 mcg PO PRN PRN 04/24/20 04/24/20 History Lisinopril [Zestril] 5 mg PO DAILY 04/24/20 04/24/20 History Ondansetron [Zofran ODT] 4 mg PO Q4HR PRN 04/24/20 04/24/20 History Pantoprazole [Protonix] 40 mg PO BID 04/24/20 04/24/20 History Promethazine [Phenergan] 25 mg PO Q6HR PRN 04/24/20 04/24/20 History SUMAtriptan Succinate [Imitrex] 100 mg PO Q2HR PRN 04/24/20 04/24/20 History Vortioxetine Hydrobromide 10 mg PO HS 04/24/20 04/24/20 History [Trintellix] Albuterol Sulfate [Proventil Hfa] 2 puff INH Q4H PRN aer 04/29/20 Rx Benzonatate [Tessalon] 100 mg PO TIDPRN PRN cap 04/29/20 Rx Dexamethasone [Decadron] 6 mg PO DAILY #6 tablet 04/29/20 Rx Enoxaparin Sodium [Lovenox] 40 mg SC BID syringe 04/29/20 Rx Guaifenesin DM 100-10 [Robitussin 15 ml PO Q4H PRN ml 04/29/20 Rx DM] Mometasone/Formoterol 100/5 1 puff INH BID-RT inh 04/29/20 Rx [Dulera 100 Mcg/5 Mcg Inhaler] Allergies: hydrocodone Allergy (Verified 04/24/20 22:53) meperidine [From Demerol] Allergy (Verified 04/24/20 22:53) morphine Allergy (Verified 04/24/20 22:53) tetracycline Allergy (Verified 04/24/20 22:53) - Discharge Instructions Activity:: Activity as Tolerated Nourishment:: Heart Healthy Diet Therapies:: Physical Therapy - Follow up Plan Referrals: Unknown,Unknown [Primary Care Provider] - Disposition: HOME Quality - Care Measures CORE MEASURES:: N/A
== END 2020-04-29 19:42 | DRG 177 ==
LOC: T4-A 22:24
PROVIDERS: ADMIT Family Medicine; ATTEND Internal Medicine
DX: U07.1 COVID-19 (principal); J96.01 Acute respiratory failure with hypoxia; J12.89 Other viral pneumonia; I81 Portal vein thrombosis; I85.00 Esophageal varices without bleeding; N18.9 Chronic kidney disease, unspecified; I12.9 Hypertensive chronic kidney disease with stage 1 through stage 4 chronic kidney disease, or unspecified chronic kidney disease; Z88.6 Allergy status to analgesic agent; Z88.8 Allergy status to other drugs, medicaments and biological substances; Z79.01 Long term (current) use of anticoagulants; Z88.1 Allergy status to other antibiotic agents; K74.60 Unspecified cirrhosis of liver
CPT/HCPCS: 36415; 36416; 80048; 80053; 82728; 84484; 85025; 86140; J1100; J1650; Q0162